=== PATIENT | male | born 1960 | race American Indian/Alaskan Native ===

== ENCOUNTER 2017-07-23 19:17 | Emergency (ER) | payer MEDICARE ==
[2017-07-23 19:38] VITALS: BP 126/85
== END 2017-07-23 21:43 | disposition left against medical advice (07) ==
LOC: ED 19:17
DX: M25.561 Pain in right knee (principal); Z53.21 Procedure and treatment not carried out due to patient leaving prior to being seen by health care provider

== ENCOUNTER 2019-05-10 06:33 | Emergency (ER) | payer MEDICARE ==
[2019-05-10] MEDS ORDERED: ASPIRIN 325 MG TAB PO ONE (06:45)
--- NOTE | 2019-05-10 07:17 | XRay Report ---
CHEST 1 VIEW INDICATION / CLINICAL INFORMATION: Chest Pain. COMPARISON: 07/11/2013 FINDINGS: SUPPORT DEVICES: None. HEART / MEDIASTINUM: No significant abnormality. LUNGS / PLEURA: There is mild interstitial prominence bilaterally. The presence of Gabino B line sugg ests that this is mild interstitial pulmonary edema. No significant pleural effusion or evidence of p neumonia. No pneumothorax. ADDITIONAL FINDINGS: No significant additional findings. IMPRESSION: 1. Mild interstitial pulmonary edema. Signer Name: Angela Martinez MD Signed: 05/10/2019 7:13 AM Workstation Name: [id number]
[2019-05-10 07:27] LABS: Basophils % (Auto) 0.2 % (0.0-1.8); Eosinophils # (Auto) 0.1 K/mm3 (0.0-0.4); Eosinophils % (Auto) 3.7 % (0.0-4.3); Hematocrit 32.9 % (35.5-45.6); Hemoglobin 10.8 gm/dl (11.8-15.2); Lymphocytes # (Auto) 0.6 K/mm3 (1.2-5.4); Lymphocytes % (Auto) 20.1 % (13.4-35.0); Mean Corpuscular HGB Conc 33 % (32-34); Mean Corpuscular Volume 87 fl (84-94); Monocytes # (Auto) 0.3 K/mm3 (0.0-0.8); Monocytes % (Auto) 10.1 % (0.0-7.3); Platelet Count 167 K/mm3 (140-440); Red Blood Count 3.81 M/mm3 (3.65-5.03); Red Cell Distribution Width 16.3 % (13.2-15.2)
[2019-05-10 08:18] LABS: BUN/Creatinine Ratio 12; Blood Urea Nitrogen 6 mg/dL (9-20); Calcium 8.5 mg/dL (8.4-10.2); Hemolysis Index 15
[2019-05-10] MEDS ORDERED: FUROSEMIDE 20 MG TAB PO ONE (09:16)
[2019-05-10] MEDS ORDERED: ACETAMINOPHEN 325 MG TAB ONE (09:31)
[2019-05-10] MEDS ORDERED: POTASSIUM CHLORIDE ER 20 MEQ TAB PO ONE (10:18)
--- NOTE | 2019-05-10 10:26 | Emergency Department Report ---
ED Chest Pain HPI - General Chief Complaint: Chest Pain Stated Complaint: CHEST PAIN/KATALINA Time Seen by Provider: 05/10/19 09:04 Source: patient Mode of arrival: Ambulatory Limitations: No Limitations - History of Present Illness Initial Comments: Patient is a 59-year-old male presents emergency room with complaints of left- sided chest pain that began yesterday morning. He describes the pain as a pressure. He states he also has shortness of breath which is worse with exertion. He states that it hurts to take a deep breath. He denies any orthopnea. He denies ever having this in the past. He denies any recent travel, surgery, leg swelling. He denies any nausea, vomiting, diaphoresis. He had a NM stress test in 2013 which was normal. He states he is a current everyday smoker half a pack a day. He is a nondrinker and denies any drug use. He states his only past medical history is RA. He denies any allergies to medications. - Related Data Home Medications Medication Instructions Recorded Confirmed Last Taken Cholecalciferol (Vitamin D3) 1 tab PO QWEEK 02/10/13 10/05/13 Unknown [Vitamin D3] Folic Acid [Folvite] 1 tab PO DAILY 02/10/13 10/05/13 07/18/13 metHOTREXate(DOSE WEEKLY ONLY) 15 mg PO QWEEK 02/10/13 10/05/13 10/04/13 09:30 [metHOTREXate (DOSE WEEKLY ONLY)] Previous Rx's Medication Instructions Recorded Last Taken Type predniSONE [Deltasone] 40 mg PO QDAY #40 tablet 10/06/13 Unknown Rx Oxycodone HCl/Acetaminophen 1 each PO Q6HR PRN #14 tablet 01/17/14 Unknown Rx [Percocet 10/325 mg] Sulfamethoxazole/Trimethoprim 1 each PO BID #20 tablet 01/17/14 Unknown Rx [Bactrim Ds] Oxycodone HCl/Acetaminophen 1 each PO Q8H #20 tablet 02/13/14 Unknown Rx [Oxycodon-Acetaminophen 7.5-325] Clindamycin [Clindamycin CAP] 300 mg PO Q8H #30 cap 03/05/14 Unknown Rx Oxycodone HCl/Acetaminophen 1 each PO Q6HR #14 tablet 03/05/14 Unknown Rx [Percocet 10-325 mg Tablet] Sulfamethoxazole/Trimethoprim 1 each PO BID #10 tablet 03/05/14 Unknown Rx [Bactrim Ds] Oxycodone HCl/Acetaminophen 1 each PO Q6HR PRN #16 tablet 04/10/14 Unknown Rx [Percocet 10/325 mg] HYDROcodone/APAP 10-325 [[place] 1 each PO Q6HR PRN #20 tablet 05/05/14 Unknown Rx 10-325 mg TAB] Ibuprofen [Motrin 800 MG tab] 800 mg PO Q8H PRN #21 tablet 07/22/14 Unknown Rx traMADoL [Ultram 50 MG tab] 50 mg PO Q4HR PRN #20 tablet 07/22/14 Unknown Rx Albuterol Sulfate [Proventil Hfa] 2 puff IH Q4HR PRN #1 hfa.aer.ad 05/10/19 Unknown Rx Allergies Allergy/AdvReac Type Severity Reaction Status Date / Time No Known Allergies Allergy Verified 09/11/13 09:27 Heart Score - HEART Score History: Slightly suspicious EKG: Non-specific Age: 45-65 Risk factors: No known risk factors Troponin: < normal limit HEART Score: 2 ED Review of Systems ROS: Stated complaint: CHEST PAIN/KATALINA Other details as noted in HPI Comment: All other systems reviewed and negative ED Past Medical Hx - Past Medical History Previous Medical History?: Yes Hx Hypertension: No Hx CVA: No Hx Heart Attack/AMI: No Hx Congestive Heart Failure: No Hx Diabetes: No Hx Deep Vein Thrombosis: No Hx Pulmonary Embolism: No Hx GERD: No Hx Liver Disease: No Hx Renal Disease: No Hx Sickle Cell Disease: No Hx Arthritis: Yes (rheumatoid arthritis) Hx Seizures: No Hx Kidney Stones: No Hx Psychiatric Treatment: No Hx Asthma: No Hx COPD: No Hx Tuberculosis: No Hx Dementia: No Hx HIV: No Additional medical history: pnemonia - Surgical History Past Surgical History?: Yes Hx Coronary Stent: No Hx Open Heart Surgery: No Hx Pacemaker: No Hx Internal Defibrillator: No Hx Cholecystectomy: No Hx Appendectomy: No Hx Breast Surgery: No Additional Surgical History: Chronic pain management for 9 years, left hip surgery. left foot surgery, right knee replacement - Social History Smoking Status: Current Every Day Smoker Substance Use Type: None - Medications Home Medications: Home Medications Medication Instructions Recorded Confirmed Last Taken Type Cholecalciferol (Vitamin D3) 1 tab PO QWEEK 02/10/13 10/05/13 Unknown History [Vitamin D3] Folic Acid [Folvite] 1 tab PO DAILY 02/10/13 10/05/13 07/18/13 History metHOTREXate(DOSE WEEKLY ONLY) 15 mg PO QWEEK 02/10/13 10/05/13 10/04/13 09:30 History [metHOTREXate (DOSE WEEKLY ONLY)] predniSONE [Deltasone] 40 mg PO QDAY #40 tablet 10/06/13 Unknown Rx Oxycodone HCl/Acetaminophen 1 each PO Q6HR PRN #14 tablet 01/17/14 Unknown Rx [Percocet 10/325 mg] Sulfamethoxazole/Trimethoprim 1 each PO BID #20 tablet 01/17/14 Unknown Rx [Bactrim Ds] Oxycodone HCl/Acetaminophen 1 each PO Q8H #20 tablet 02/13/14 Unknown Rx [Oxycodon-Acetaminophen 7.5-325] Clindamycin [Clindamycin CAP] 300 mg PO Q8H #30 cap 03/05/14 Unknown Rx Oxycodone HCl/Acetaminophen 1 each PO Q6HR #14 tablet 03/05/14 Unknown Rx [Percocet 10-325 mg Tablet] Sulfamethoxazole/Trimethoprim 1 each PO BID #10 tablet 03/05/14 Unknown Rx [Bactrim Ds] Oxycodone HCl/Acetaminophen 1 each PO Q6HR PRN #16 tablet 04/10/14 Unknown Rx [Percocet 10/325 mg] HYDROcodone/APAP 10-325 [[place] 1 each PO Q6HR PRN #20 tablet 05/05/14 Unknown Rx 10-325 mg TAB] Ibuprofen [Motrin 800 MG tab] 800 mg PO Q8H PRN #21 tablet 07/22/14 Unknown Rx traMADoL [Ultram 50 MG tab] 50 mg PO Q4HR PRN #20 tablet 07/22/14 Unknown Rx Albuterol Sulfate [Proventil Hfa] 2 puff IH Q4HR PRN #1 hfa.aer.ad 05/10/19 Unknown Rx ED Physical Exam - General Limitations: No Limitations General appearance: alert, in no apparent distress - Head Head exam: Present: atraumatic, normocephalic - Eye Eye exam: Present: normal appearance - ENT ENT exam: Present: mucous membranes moist - Respiratory Respiratory exam: Present: normal lung sounds bilaterally. Absent: respiratory distress, wheezes, rales, rhonchi, stridor, chest wall tenderness, accessory muscle use, decreased breath sounds, prolonged expiratory - Cardiovascular Cardiovascular Exam: Present: regular rate, normal rhythm, normal heart sounds. Absent: systolic murmur, diastolic murmur, rubs, gallop - Extremities Exam Extremities exam: Absent: pedal edema, calf tenderness - Neurological Exam Neurological exam: Present: alert, oriented X3 - Psychiatric Psychiatric exam: Present: normal affect, normal mood - Skin Skin exam: Present: warm, dry, intact ED Course Vital Signs 05/10/19 05/10/19 06:52 10:42 Temperature 99.3 F 97.5 F L Pulse Rate 80 93 H Respiratory 18 16 Rate Blood Pressure 140/90 Blood Pressure 135/77 [Right] O2 Sat by Pulse 94 94 Oximetry NIKO score - Niko Score Age > 65: (0) No Aspirin use within the Past 7 Days: (0) No 3 or more CAD Risk Factors: (0) No 2 or more Angina events in past 24 hrs: (1) Yes Known CAD with more than 50% Stenosis: (0) No Elevated Cardiac Markers: (0) No ST Deviation Greater than 0.5mm: (0) No NIKO Score: 1 ED Medical Decision Making - Lab Data Result diagrams: 05/10/19 06:58 05/10/19 06:58 Lab Results 05/10/19 05/10/19 05/10/19 Range/Units 06:58 06:58 09:54 WBC 3.0 L (4.5-11.0) K/mm3 RBC 3.81 (3.65-5.03) M/mm3 Hgb 10.8 L (11.8-15.2) gm/dl Hct 32.9 L (35.5-45.6) % MCV 87 (84-94) fl MCH 28 (28-32) pg MCHC 33 (32-34) % RDW 16.3 H (13.2-15.2) % Plt Count 167 (140-440) K/mm3 Lymph % (Auto) 20.1 (13.4-35.0) % [place] % (Auto) 10.1 H (0.0-7.3) % Eos % (Auto) 3.7 (0.0-4.3) % Baso % (Auto) 0.2 (0.0-1.8) % Lymph # 0.6 L (1.2-5.4) K/mm3 [place] # 0.3 (0.0-0.8) K/mm3 Eos # 0.1 (0.0-0.4) K/mm3 Baso # 0.0 (0.0-0.1) K/mm3 Seg Neutrophils % 65.9 (40.0-70.0) % Seg Neutrophils # 2.0 (1.8-7.7) K/mm3 D-Dimer (0-234) ng/mlDDU Sodium 133 L (137-145) mmol/L Potassium 3.7 (3.6-5.0) mmol/L Chloride 98.0 (98-107) mmol/L Carbon Dioxide 22 (22-30) mmol/L Anion Gap 17 mmol/L BUN 6 L (9-20) mg/dL Creatinine 0.5 L (0.8-1.5) mg/dL Estimated GFR > 60 ml/min BUN/Creatinine Ratio 12 % Glucose 109 H (75-100) mg/dL Calcium 8.5 (8.4-10.2) mg/dL Troponin T < 0.010 < 0.010 (0.00-0.029) ng/mL NT-Pro-B Natriuret Pep (0-900) pg/mL 05/10/19 05/10/19 Range/Units 09:54 09:54 WBC (4.5-11.0) K/mm3 RBC (3.65-5.03) M/mm3 Hgb (11.8-15.2) gm/dl Hct (35.5-45.6) % MCV (84-94) fl MCH (28-32) pg MCHC (32-34) % RDW (13.2-15.2) % Plt Count (140-440) K/mm3 Lymph % (Auto) (13.4-35.0) % [place] % (Auto) (0.0-7.3) % Eos % (Auto) (0.0-4.3) % Baso % (Auto) (0.0-1.8) % Lymph # (1.2-5.4) K/mm3 [place] # (0.0-0.8) K/mm3 Eos # (0.0-0.4) K/mm3 Baso # (0.0-0.1) K/mm3 Seg Neutrophils % (40.0-70.0) % Seg Neutrophils # (1.8-7.7) K/mm3 D-Dimer 1850.46 H (0-234) ng/mlDDU Sodium (137-145) mmol/L Potassium (3.6-5.0) mmol/L Chloride (98-107) mmol/L Carbon Dioxide (22-30) mmol/L Anion Gap mmol/L BUN (9-20) mg/dL Creatinine (0.8-1.5) mg/dL Estimated GFR ml/min BUN/Creatinine Ratio % Glucose (75-100) mg/dL Calcium (8.4-10.2) mg/dL Troponin T (0.00-0.029) ng/mL NT-Pro-B Natriuret Pep 305.2 (0-900) pg/mL - EKG Data EKG shows normal: sinus rhythm Rate: normal - EKG Data 05/10/19 13:17 LAD LVH no STEMI - Radiology Data Radiology results: report reviewed CHEST 1 VIEW INDICATION / CLINICAL INFORMATION: Chest Pain. COMPARISON: 07/11/2013 FINDINGS: SUPPORT DEVICES: None. HEART / MEDIASTINUM: No significant abnormality. LUNGS / PLEURA: There is mild interstitial prominence bilaterally. The presence of Gabino B line suggests that this is mild interstitial pulmonary edema. No significant pleural effusion or evidence of pneumonia. No pneumothorax. ADDITIONAL FINDINGS: No significant additional findings. IMPRESSION: 1. Mild interstitial pulmonary edema. Signer Name: Angela Martinez MD Signed: 05/10/2019 7:13 AM Workstation Name: [id number] Transcribed By: JR Dictated By: Angela Martinez MD Electronically Authenticated By: Angela Martinez MD Signed Date/Time: 05/10/19712 DD/ 0 TD/TT: CTA CHEST WITH IV CONTRAST INDICATION: Chest pain, SOB, elevated d-dimer. TECHNIQUE: Axial CT images were obtained through the chest after injection of 100 cc Omnipaque 350 IV contrast. 3 plane MIP reconstructions were produced. All CT scans at this location are performed usi ng CT dose reduction for ALARA by means of automated exposure control. COMPARISON: One view of the chest from earlier today. FINDINGS: PULMONARY ARTERIES: No pulmonary emboli. AORTA AND ARTERIES: No acute abnormality. MEDIASTINUM: The thyroid gland is unremarkable. The trachea and main bronchi are patent and normal in caliber. No mass or lymphadenopathy. Normal heart size without a pericardial effusion. LUNGS: Moderate to severe emphysema is noted with secondary chronic appearing parenchymal changes, predominantly along the lung bases. No additional significant pulmonary abnormality, pneumothorax or pleural effusion. ADDITIONAL FINDINGS: None. UPPER ABDOMEN: No acute findings. BONES: No acute abnormality. Degenerative changes are noted throughout the spine. IMPRESSION: 1. No CT evidence for pulmonary embolism. 2. No acute findings. 3. Moderate to severe emphysema. Signer Name: Rishi Campuzano MD Signed: 05/10/2019 12:43 PM Workstation Name: [id number] Transcribed By: MIRTA Dictated By: Rishi Campuzano MD Electronically Authenticated By: Rishi Campuzano MD Signed Date/Time: 05/10/19 1243 DD/ 1240 TD/TT: - Medical Decision Making Patient is a 59-year-old male presents emergency room with complaints of left- sided chest pain that began yesterday morning. He describes the pain as a pressure. He states he also has shortness of breath which is worse with exertion. He states that it hurts to take a deep breath. He denies any orthop ajay. He denies ever having this in the past. He denies any recent travel, surgery, leg swelling. He denies any nausea, vomiting, diaphoresis. He had a NM stress test in 2013 which was normal. He states he is a current everyday smoker half a pack a day. He is a nondrinker and denies any drug use. He states his only past medical history is RA. He denies any allergies to medications. VSS. On exam lungs are clear bilaterally, no signs of pitting edema in the lower extremities. EKG with LAD, LVH, no STEMI. Troponin is negative x2. BNP is normal. D-dimer is elevated. pt is not retaining CO2 based on his lab work. CXR: 1. Mild interstitial pulmonary edema. Patient does not have signs of acute decompensated heart failure, no rales, no pitting edema, patient given Lasix and K-Dur. CT angio chest: 1. No CT evidence for pulmonary embolism. 2. No acute findings. 3. Moderate to severe emphysema. Heart score is 2, NIKO score is 1, very low risk for cardiac event. Appears patient symptoms are related to worsening emphysema. Patient states that he also already has an appointment with a regular senior care provider next month to have further test ran. Will refer patient to cardiology for an outpatient work-up. Patient given a prescription for an albuterol inhaler to use as needed if feeling short of breath. advised pt to please use medication as prescribed as needed. Please follow-up with a skiver hand. Please follow-up with your regular senior care provider. Return to the emergency room immediately for any new or worsening symptoms. Please stop smoking. - Differential Diagnosis ACS, PE, CHF, AAA, dissection, COPD, PNA, pericardial effusion, pleural eff Critical care attestation.: If time is entered above; I have spent that time in minutes in the direct care of this critically ill patient, excluding procedure time. ED Disposition Clinical Impression: SOB (shortness of breath), Tobacco use Chest pain Qualifiers: Chest pain type: unspecified Qualified Code(s): R07.9 - Chest pain, unspecified COPD (chronic obstructive pulmonary disease) Qualifiers: COPD type: emphysema Emphysema type: unspecified Qualified Code(s): J43.9 - Emphysema, unspecified Disposition: DC-01 TO HOME OR SELFCARE Is pt being admited?: No Does the pt Need Aspirin: No Condition: Stable Instructions: Chest Pain (ED), How to Stop Smoking (ED), Chronic Obstructive Pulmonary Disease (ED) Additional Instructions: Please use medication as prescribed as needed. Please follow-up with a cardiol ogist. Please follow-up with your regular senior care provider. Return to the emergency room immediately for any new or worsening symptoms. Please stop smoking. Prescriptions: Albuterol Sulfate [Proventil Hfa] 2 puff IH Q4HR PRN #1 hfa.aer.ad PRN Reason: Shortness Of Breath Referrals: PRIMARY CARE, [Primary Care Provider] - 2-3 Days NEDRA SALDAÑA MD [Staff Physician] - 2-3 Days alva, regular senior care provider [Other] - 2-3 Days Time of Disposition: 12:56 Print Language: KINYARWANDA
[2019-05-10 10:42] VITALS: BP 140/90
--- NOTE | 2019-05-10 12:47 | Cat Scan Report ---
CTA CHEST WITH IV CONTRAST INDICATION: Chest pain, SOB, elevated d-dimer. TECHNIQUE: Axial CT images were obtained through the chest after injection of 100 cc Omnipaque 350 IV contrast. 3 plane MIP reconstructions were produced. All CT scans at this location are performed using CT dose reduction for ALARA by means of automated exposure control. COMPARISON: One view of the chest from earlier today. FINDINGS: PULMONARY ARTERIES: No pulmonary emboli. AORTA AND ARTERIES: No acute abnormality. MEDIASTINUM: The thyroid gland is unremarkable. The trachea and main bronchi are patent and normal in caliber. No mass or lymphadenopathy. Normal heart size without a pericardial effusion. LUNGS: Moderate to severe emphysema is noted with secondary chronic appearing parenchymal changes, pr edominantly along the lung bases. No additional significant pulmonary abnormality, pneumothorax or pl eural effusion. ADDITIONAL FINDINGS: None. UPPER ABDOMEN: No acute findings. BONES: No acute abnormality. Degenerative changes are noted throughout the spine. IMPRESSION: 1. No CT evidence for pulmonary embolism. 2. No acute findings. 3. Moderate to severe emphysema. Signer Name: Rishi Campuzano MD Signed: 05/10/2019 12:43 PM Workstation Name: [id number]
== END 2019-05-10 13:06 | disposition home or self-care (01) ==
LOC: ED 06:33
DX: J44.9 Chronic obstructive pulmonary disease, unspecified (principal); M19.90 Unspecified osteoarthritis, unspecified site; F17.200 Nicotine dependence, unspecified, uncomplicated; Z79.899 Other long term (current) drug therapy
CPT/HCPCS: 36415; 71045; 71275; 80048; 83880; 84484; 85025; 85379; 93005; 93010; 99285; Q9967